=== PATIENT | female | born 1965 | race Caucasian/White ===

== ENCOUNTER → 2021-12-08 | Outpatient (CLI) | payer MEDICARE, MEDICAID ==
--- NOTE | 2021-12-08 11:50 | Diagnostic Imaging Report ---
INDICATION: ARTHRITIS OF FIRST CARPOMETACARPAL JOINT OF LEFT HAND. LEFT THUMB PAIN, NO KNOWN INJURY. TECHNIQUE: Single PA view left hand with 3 views of the left thumb, 11:40 AM. CORRELATION STUDY: None FINDINGS: Limited visualized portion left hand demonstrates no acute bony abnormality. Minimal density adjacent to the distal interphalangeal joint of the index finger likely of no significance. Imaging left thumb demonstrates normal alignment to be present. Minimal osteophyte at the base of the 1st proximal phalanx. There is mild to moderate narrowing at the 1st carpometacarpal articulation with mild osteophyte formation projecting interposed between the base the 1st and 2nd metacarpals. IMPRESSION: 1. Negative for acute bony abnormality left hand with attention left thumb. There is a mildly advanced degenerative change of the 1st carpometacarpal articulation. Dictated by: Dictated on workstation # [id number]
== END ==
LOC: RAD FS 11:30
PROVIDERS: ATTEND Nurse Practitioner
DX: M13.842 Other specified arthritis, left hand (principal)
CPT/HCPCS: 73140

== ENCOUNTER 2022-12-25 20:22 | Emergency (ER) | payer MEDICARE, MEDICAID ==
--- NOTE | 2022-12-25 20:30 | ED General ---
General Stated Complaint: INSECT BITE History of Present Illness Date Seen by Provider: Dec 25, 2022 Time Seen by Provider: 20:30 Initial Comments 57-year-old female is here with complaints of a spider bite to the back of her neck which she noticed for to 5 days ago. Patient noticed some discharge coming out of the bite wound. The bite seems to be worsening and now has a scab with swelling around it. Patient has associated nausea with it. Denies fever and chills, SOB, abdominal pain, diarrhea, rashes, chest pain, oral swelling. Patient does not have any respiratory compromise and is speaking in clear sentences. Allergies and Home Medications Allergies Uncoded Allergies: SULFA (Allergy, Unknown, 12/25/22) Patient Home Medication List Home Medication List Reviewed: Yes Review of Systems Review of Systems Constitutional: no symptoms reported EENTM: see HPI Respiratory: no symptoms reported Cardiovascular: no symptoms reported Gastrointestinal: no symptoms reported Genitourinary: no symptoms reported Musculoskeletal: no symptoms reported Skin: lesions Psychiatric/Neurological: No Symptoms Reported Hematologic/Lymphatic: No Symptoms Reported Immunological/Allergic: no symptoms reported Physical Exam Vital Signs Vital Signs - First Documented 12/25/22 20:29 Pulse 95 Resp 20 B/P (MAP) 173/99 (123) Pulse Ox 100 O2 Delivery Room Air Capillary Refill : Height, Weight, BMI Height: '" Weight: lbs. oz. kg; BMI Method: General Appearance: No Apparent Distress, WD/WN HEENT: PERRL/EOMI Neck: Full Range of Motion, Normal Inspection, Non Tender, Supple, Other (Posterior neck showsan likely brown recluse bite, with a 2 cm diameter scab with surrounding erythema which is slightly warm to touch, and raised. No drainage or discharge seen at this time. Range of movement of neck is not affected) Respiratory: Lungs Clear Cardiovascular: Regular Rate, Rhythm Gastrointestinal: Non Tender, Soft Neurologic/Psychiatric: Alert, Oriented x3, No Motor/Sensory Deficits Skin: Other (See neck exam) Lymphatic: No Adenopathy Progress/Results/Core Measures Suspected Sepsis SIRS Temperature: Pulse: Respiratory Rate: Blood Pressure / Mean: Results/Orders Vital Signs/I&O 12/25/22 20:29 Pulse 95 Resp 20 B/P (MAP) 173/99 (123) Pulse Ox 100 O2 Delivery Room Air Capillary Refill : Progress Note : Progress Note 1. BROWN RECLUSE BITE: -Prescription for Augmentin bid for 7 days with first tab given in ER -Advise antibiotic ointment on site of bite -Patient is already on meloxicam which is an NSAID that will help with inflammation -Zofran ODT given in ER, and patient has more Zofran at home to take as needed -Follow-up with PCP clinic and/or general surgery clinic in the next 7 days The patient was seen in the ED, and treated appropriately to presentation at a specific point in time. Patient is informed that there is a possibility that disease and illness can evolve and change in acuity rapidly or slowly after pat ient is discharged from the ER. Precautionary advice given to the patient for immediate return to ER if symptoms worsen or do not resolve, and to seek emergency care sooner rather than later. Pt also advised on the importance of PCP follow up and compliance with management and follow up plan with PCP and/or specialist, as this is part of the management plan. Pt verbally expressed u nderstanding. Departure Impression Primary Impression: Brown recluse spider bite Qualified Codes: T63.331A - Toxic effect of venom of nikolai alejoluse spider, accidental (unintentional), initial encounter Disposition: HOME, SELF-CARE Condition: Stable Departure-Patient Inst. Referrals: HEBERT JACOBS (PCP) Primary Care Physician OSBALDO MOREIRA MD (Family) Primary Care Physician Patient Instructions: Spider Bites, Cellulitis (Skin Infection), Adult (DC) Add. Discharge Instructions: -Prescription for Augmentin bid for 7 days with first tab given in ER -Advise antibiotic ointment on site of bite -Patient is already on meloxicam which is an NSAID that will help with inflammat ion -Follow-up with PCP clinic and/or general surgery clinic in the next 7 days Scripts Amoxicillin/Potassium Clav (Amox Tr-K Clv 875-125 mg Tab) 875 Mg-125 Mg Tablet 1 EACH PO BID for 7 Days, #14 TAB Prov: ALICIA DEAL MD 12/25/22 ALICIA DEAL MD Dec 25, 2022 20:30
[2022-12-25] MEDS ORDERED: ONDANSETRON 4 MG (ZOFRAN) ORAL DISSOLVE TAB PO STA (21:04)
[2022-12-25] MEDS ORDERED: AUGMENTIN 875 MG TAB (AMOXICILLIN/CLAVULANATE) PO STA (21:04)
[2022-12-25] MEDS ORDERED: AMOX1TAB12 PO (21:13)
[2022-12-25] MEDS ORDERED: AUGMENTIN 875 MG TAB (AMOXICILLIN/CLAVULANATE) ONE (21:18)
[2022-12-25] MEDS ORDERED: ONDANSETRON 4 MG (ZOFRAN) ORAL DISSOLVE TAB ONE (21:18)
[2022-12-25 21:20] VITALS: BP 173/99
== END 2022-12-25 21:21 | disposition home or self-care (01) ==
LOC: EDUNIT# 20:22 → ER FS 20:25
DX: T63.331A Toxic effect of venom of brown recluse spider, accidental (unintentional), initial encounter (principal); Z88.2 Allergy status to sulfonamides; Z28.310 Unvaccinated for COVID-19
CPT/HCPCS: 99283